=== PATIENT | female | born 1980 | race Two or more races ===

== ENCOUNTER 2022-08-10 12:30 | Inpatient (IN) | payer OTHER ==
[~2022-08-10] VITALS: Ht 157.5 cm; Wt 90.7 kg
== END 2022-08-15 10:45 | disposition home or self-care (01) | DRG 743 ==
LOC: OB/GYN 08-12 07:00 → O/R 08-12 08:06 → OB/GYN 08-12 12:30
PROVIDERS: ADMIT Specialist; ATTEND Specialist
PROC: 0UT10ZZ Resection of Left Ovary, Open Approach (ICD-10-PCS; 2022-08-12)
PROC: 0DNW0ZZ Release Peritoneum, Open Approach (ICD-10-PCS; 2022-08-12)
PROC: 0UB10ZZ Excision of Left Ovary, Open Approach (ICD-10-PCS; 2022-08-12)
PROC: 0UT60ZZ Resection of Left Fallopian Tube, Open Approach (ICD-10-PCS; principal; 2022-08-12 07:00)
DX: N83.12 Corpus luteum cyst of left ovary (principal); N83.02 Follicular cyst of left ovary; Z20.822 Contact with and (suspected) exposure to COVID-19